=== PATIENT | female | born 2000 | race Caucasian/White ===

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

== ENCOUNTER 2019-06-20 08:06 | Emergency (ER) | payer BC ==
[2019-06-20 09:47] LABS: Influenza A Molecular Negative (Negative); Influenza B Molecular Negative (Negative)
--- NOTE | 2019-06-20 09:55 | UC ---
Neck Pain HPI - HPI Summary HPI Summary: 19 yo [place] student with one day history of left neck swelling and mild pain. She has mild dysphagia. No fever and no prodromal symptoms. Believes that she has been fully immunized. - History of Current Complaint Chief Complaint: UCGeneralIllness Stated Complaint: SWOLLEN LEFT NECK Time Seen by Provider: 06/20/19 09:34 Hx Obtained From: Patient Hx Last Menstrual Period: 06/02/2019 ?: No Onset/Duration Of Injury/Symptoms: Hours Timing: Constant Onset/Duration: Gradual Onset Severity: Moderate Pain Intensity: 0 Location: Discrete At: - left side of jaw Character: Aching Aggravating Factors: Nothing Alleviating Factors: OTC Meds Associated Signs & Symptoms: Positive: Swelling. Negative: Fever, Nuchal Rigity , Headache - Risk Factors Meningitis Risk Factors: Negative - Allergies/Home Medications Allergies/Adverse Reactions: Allergies Allergy/AdvReac Type Severity Reaction Status Date / Time PITTED FRUITS Allergy Unknown THROAT Uncoded 06/20/19 08:38 ITICHES, SOB Home Medications: Home Medications Ibuprofen TAB* [Advil TAB*] 400 mg PO Q6H PRN 06/20/19 [History Confirmed ] PMH/Surg Hx/FS Hx/Imm Hx Previously Healthy: Yes - Surgical History Surgical History: Yes Surgery Procedure, Year, and Place: Tonsillectomy, ~2017, [place]; Left Ankle Growth Plate Fracture repaired with two pins, ~2005 - Family History Known Family History: Positive: Other - no family hx of Sjogren's or RA Negative: Cardiac Disease, Hypertension - Social History Occupation: Student Lives: Dormitory/Roommates Alcohol Use: Occasionally Substance Use Type: None Smoking Status (MU): Never Smoked Tobacco Review of Systems All Other Systems Reviewed And Are Negative: Yes Constitutional: Positive: Negative Skin: Positive: Negative Eyes: Positive: Negative ENT: Positive: Other Respiratory: Positive: Negative Cardiovascular: Positive: Negative Gastrointestinal: Positive: Negative Genitourinary: Positive: Negative Motor: Positive: Negative Neurovascular: Positive: Negative Musculoskeletal: Positive: Negative. Negative: Myalgia Neurological/Mental Status: Negative: Headache Psychological: Positive: Negative Is Patient Immunocompromised?: No Physical Exam Triage Information Reviewed: Yes Appearance: Well-Appearing, No Pain Distress Vital Signs: Initial Vital Signs Temp 98.3 F 06/20/19 08:36 Pulse 100 06/20/19 08:36 Resp 16 06/20/19 08:36 BP 99/59 06/20/19 08:36 Pulse Ox 100 06/20/19 08:36 Eye Exam: Normal Eyes: Positive: Conjunctiva Clear ENT: Positive: Pharynx normal, Other. Negative: Tonsillar swelling Dental Exam: Normal Neck: Positive: Supple, Nontender, Other: - left mandibular gland with firm swelling over approximately 8 cm area. right tonsillar node tender. Respiratory: Positive: Lungs clear, Normal breath sounds Cardiovascular: Positive: RRR, No Murmur Abdomen Description: Positive: Nontender, No Organomegaly, Soft Musculoskeletal Exam: Normal Neurological Exam: Normal Psychological Exam: Normal Skin Exam: Normal Neck Pain Course/Dx - Course Course Of Treatment: continue ibuprofen for control of pain. Swabs submitted for viral culture AND serum samples drawn. Infection control notified. Given pending school break Mone will return home and self quarantine through 06/23/19. I reviewed the guidelines with her mom via phone. - Differential Dx/Diagnosis Differential Dx/HQI/PQRI: Other - mumps Provider Diagnosis: Parotid gland enlargement Discharge ED - Sign-Out/Discharge Documenting (check all that apply): Patient Departure All imaging exams completed and their final reports reviewed: No Studies - Discharge Plan Condition: Stable Disposition: HOME Patient Education Materials: Mumps in Adults (ED) Forms: *School Release Referrals: No Primary Care Phys,NOPCP [Primary Care Provider] - Additional Instructions: You have a large left parotid gland and the suspected diagnosis is mumps based on your age and the cases occurring at [facility]. Warm moist compresses to the gland can help to relieve pain, and use of ibuprofen 600mg every 6 to 8 hours can be helpful to relieve pain. You will self isolate at home, wearing a mask and ensuring that surfaces are kept clean. You cannot attend classes at this time. Results of the lab testing will be available on 06/21 or 06/22. - Billing Disposition and Condition Condition: STABLE Disposition: Home
[2019-06-20] MEDS ORDERED: Ibuprofen TAB* 600 MG PO ONE (10:23)
[2019-06-20 11:08] VITALS: BP 107/73
--- NOTE | 2019-06-22 09:48 | UC ---
- Progress Note Progress Note: I called Mone after reviewing her serology: positive IgG and negative IgM. She has less pain but persistent enlargement of the gland. Still suspect mumps with negative IgM. Will continue to self isolate until Tuesday. Course/Dx - Diagnoses Provider Diagnoses: Parotid gland enlargement Discharge ED - Sign-Out/Discharge Documenting (check all that apply): Post-Discharge Follow Up All imaging exams completed and their final reports reviewed: No Studies - Discharge Plan Condition: Stable Disposition: HOME Patient Education Materials: Mumps in Adults (ED) Forms: *School Release Referrals: No Primary Care Phys,NOPCP [Primary Care Provider] - Additional Instructions: You have a large left parotid gland and the suspected diagnosis is mumps based on your age and the cases occurring at [facility]. Warm moist compresses to the gland can help to relieve pain, and use of ibuprofen 600mg every 6 to 8 hours can be helpful to relieve pain. You will self isolate at home, wearing a mask and ensuring that surfaces are kept clean. You cannot attend classes at this time. Results of the lab testing will be available on 06/21 or 06/22. - Billing Disposition and Condition Condition: STABLE Disposition: Home
== END 2019-06-20 12:10 | disposition home or self-care (01) ==
LOC: UCCORT 08:06
DX: K11.1 Hypertrophy of salivary gland (principal); Z91.018 Allergy to other foods
CPT/HCPCS: 99212; A9270-GY; G0463